=== PATIENT | female | born 1990 | race Caucasian/White ===

== ENCOUNTER 2019-04-19 21:34 | Emergency (ER) | payer OTHER, MEDICARE ==
[2019-04-19] MEDS ORDERED: LIDOCAINE HCL 2% VISCOUS 15 ML UDCUP ONE (22:56)
[2019-04-19] MEDS ORDERED: MAG HYDROX/AL HYDROX/SIMETH ES 30 ML SUSP UDCUP ONE (22:56)
== END 2019-04-20 00:02 | disposition home or self-care (01) ==
LOC: EDH 21:34
DX: R13.10 Dysphagia, unspecified (principal); R09.89 Other specified symptoms and signs involving the circulatory and respiratory systems; F41.9 Anxiety disorder, unspecified
CPT/HCPCS: 70360; 71045; 81025

== ENCOUNTER → 2022-10-05 | Outpatient (CLI) | payer OTHER, MEDICARE ==
[~2022-10-05] MED LIST: IOHEXOL 350 MG/ML 100ML INFUS..BTL IV ONE
== END | disposition home or self-care (01) ==
LOC: RAH 07:45
PROVIDERS: ATTEND Family Medicine
DX: D18.03 Hemangioma of intra-abdominal structures (principal)
CPT/HCPCS: 74160; Q9967